=== PATIENT | female | born 1990 | race Caucasian/White ===

== ENCOUNTER 2016-07-19 19:26 | Outpatient (CLI) | payer OTHER ==
[~2016-07-19] VITALS: Ht 165.1 cm; Wt 74.8 kg
[2016-07-19 19:49] VITALS: BP 105/62; PULSE 96; RESP 20; Ht 165.1 cm; Wt 74.8 kg
--- NOTE | 2016-07-19 21:03 | PN ---
Date/Time of Note Date/Time of Note DATE: 07/19/16 TIME: 20:57 OB Subjective Subjective Subjective 26 Year-old G1 with SIUP at 32 3/7 weeks presents with a chief complaint of abdominal cramp every one hour. She has been receiving her care with Dr. Yanes. She states good movement. She denies nausea, vomiting, shortness of breath, chest pain, headache, visual changes, vaginal bleeding or LOF. OB Objective Objective Objective General: Patient appears well, alert and oriented, NAD, appropriate mood and affect ABD: gravid, soft, non-tender. Back: No CVA tenderness (B/L) LE: No clubbing, cyanosis, edema, thigh or calf tenderness bilaterally FHT: 140 bpm , moderate variability with acceleration, no deceleration-category I Contractions: None OB Assessment/Plan Other plan: 26 Year-old G1 with SIUP at 32 3/7 weeks with occasional abdominal cramp, no ucs in exam - FHR: No sign of metabolic acidosis- Category I - Continuous EFM, toco - Contractions: None. - Reactive NST. - Symptoms and sign of labor, preeclampsia, kick count discussed with patient, she voiced understanding. All of her questions answered. - Patient was discharged home in stable condition with the appropriate discharge instructions provided. I would like patient to have close follow-up with her primary OB care physician or outpatient clinic in 1-2 days or return to the ER for worsening symptoms or any other urgent concerns. IGGY BEAVER Jul 19, 2016 21:03
[2016-07-19] MEDS ORDERED: LACTATED RINGER'S 1,000 ML IV ONE (22:30)
--- NOTE | 2016-07-19 23:02 | RADRPT ---
PROCEDURE: ULTRASOUND OBSTETRICAL CLINICAL INDICATION: 26-year-old female in labor for cervical length evaluation. TECHNIQUE: The sonographic images of the pelvis were obtained using a transvaginal approach was sc anned evaluate the cervix. The images were reviewed on a PACS workstation. COMPARISON: No prior studies are available for comparison. FINDINGS: The cervix is closed with a length of 4.5 cm evaluated transvaginally. IMPRESSION: The cervix is closed with a length of 4.5 cm. .Mayur Razo MD, MD Date Time Electronically viewed and signed by .Mayur Razo MD, on 07/19/2016 23:02 .M/
[2016-07-19 23:17] LABS: ADD UMIC NO; URINE BILIRUBIN (Dip) NEGATIVE (NEGATIVE); URINE BLOOD (Dip) NEGATIVE (NEGATIVE); URINE COLOR LT. YELLOW (YELLOW); URINE GLUCOSE (Dip) NEGATIVE (NEGATIVE); URINE KETONES (Dip) NEGATIVE (NEGATIVE); URINE LEUKOCYTE ESTERASE (Dip) NEGATIVE (NEGATIVE); URINE NITRITE (Dip) NEGATIVE (NEGATIVE); URINE TOTAL PROTEIN (Dip) NEGATIVE (NEGATIVE); URINE UROBILINOGEN (Dip) 1.0 E.U./dL (0.1-1.0)
[2016-07-19 23:28] LABS: ADD SCAN DIFF NO
[2016-07-19 23:30] LABS: BASOPHILS % 0.5 % (0.0-2.0); EOSINOPHILS # 0.1 10^3/ul (0.0-0.5); EOSINOPHILS % 0.7 % (0.0-7.0); HEMATOCRIT 32.6 % (37.0-47.0); HEMOGLOBIN 11.2 g/dl (12.0-16.0); LYMPHOCYTES % 23.7 % (15.0-51.0); MEAN CORPUSCULAR HEMOGLOBIN 31.7 pg (29.0-33.0); MEAN CORPUSCULAR HGB CONC 34.4 g/dl (32.0-37.0); MEAN CORPUSCULAR VOLUME 92.4 fl (82.0-101.0); MEAN PLATELET VOLUME 10.3 fl (7.4-10.4); MONOCYTE # 0.9 10^3/ul (0.3-0.9); MONOCYTES % 9.9 % (0.0-11.0); NEUTROPHIL # 5.5 10^3/ul (1.6-7.5); NEUTROPHILS % 63.6 % (39.0-77.0); PLATELET COUNT 200 10^3/UL (140-415); RED BLOOD COUNT 3.53 10^6/ul (4.20-5.40); RED CELL DISTRIBUTION WIDTH 12.3 % (11.5-14.5); WHITE BLOOD COUNT 8.6 10^3/ul (4.8-10.8)
--- NOTE | 2016-07-20 04:49 | TRIAGE ---
OB Triage Datetime Report Generated by CPN: 07/20/2016 04:49 Datetime: 07/19/2016 23:50 Stage of : OB Triage Labor Evaluation Frequency: Irregular Monitor Mode: External Duration (sec)2399: 40-90 Quality: Mild Pattern: Normal: <= 5 Contractions in 10 Minutes Resting Tone [place]: Relaxed Heart Rate FHR Baseline Rate: 130 Monitor Mode: External US FHR Baseline Changes: No Baseline Change Variability: Moderate 6-25 bpm Accelerations: 15X15 Decelerations: None Category: Category I Datetime: 07/19/2016 23:00 Stage of : OB Triage Labor Evaluation Frequency: x5 Monitor Mode: External Duration (sec)2399: 40-70 Quality: Mild Pattern: Normal: <= 5 Contractions in 10 Minutes Resting Tone [place]: Relaxed Heart Rate FHR Baseline Rate: 130 Monitor Mode: External US FHR Baseline Changes: No Baseline Change Variability: Moderate 6-25 bpm Accelerations: 15X15 Decelerations: None Category: Category I Datetime: 07/19/2016 22:40 Pool: Negative Datetime: 07/19/2016 22:25 Stage of : OB Triage Datetime: 07/19/2016 22:06 Vaginal Exam Membrane Status: Intact Datetime: 07/19/2016 22:00 Stage of : OB Triage Labor Evaluation Frequency: x7 Monitor Mode: External Duration (sec)2399: 40-60 Quality: Mild Pattern: Normal: <= 5 Contractions in 10 Minutes Resting Tone [place]: Relaxed Heart Rate FHR Baseline Rate: 130 Monitor Mode: External US FHR Baseline Changes: No Baseline Change Variability: Moderate 6-25 bpm Accelerations: 15X15 Decelerations: None Category: Category I Datetime: 07/19/2016 21:00 Stage of : OB Triage Labor Evaluation Frequency: Irregular Monitor Mode: External Duration (sec)2399: 40-50 Quality: Mild Pattern: Normal: <= 5 Contractions in 10 Minutes Resting Tone [place]: Relaxed Heart Rate FHR Baseline Rate: 130 Monitor Mode: External US FHR Baseline Changes: No Baseline Change Variability: Moderate 6-25 bpm Accelerations: 15X15 Decelerations: None Category: Category I Datetime: 07/19/2016 20:00 Stage of : OB Triage Labor Evaluation Frequency: x2 Monitor Mode: External Duration (sec)2399: 40-50 Quality: Mild Pattern: Normal: <= 5 Contractions in 10 Minutes Resting Tone [place]: Relaxed Heart Rate FHR Baseline Rate: 130 Monitor Mode: External US Variability: Moderate 6-25 bpm Accelerations: 15X15 Decelerations: None Category: Category I Datetime: 07/19/2016 19:47 EGA: 32.4 Datetime: 07/19/2016 19:36 Stage of : OB Triage Assessment Type: Triage Maternal Assessment Level of Consciousness: Fully Conscious DTR's/Clonus: DTRs 2+; No Clonus Headache: Denies Blurred Vision: No Respiratory Effort: Unlabored; Regular Rhythm; Equal Expansion Breath Sounds, Left: Clear and Equal Breath Sounds, Right: Clear and Equal Nausea/Vomiting: Denies RUQ Epigastric Pain: Denies Lower Extremities Edema: None Degree: None Upper Extremities Edema: None Degree: None Facial Edema: None Temperature Route: Oral Fall Risk Assessment History of Falling: (0) No Secondary Diagnosis: (0) No Ambulatory Aid: (0) Bedrest/Nurse Assist IV Therapy: (0) No Gait: (0) Normal/Bedrest/Immobile Mental Status: (0) Oriented to Own Ability Fall Score: 0 Fall Risk Score Definition: No Risk: No action required Pain Assessment Pain Scale: 0 Pain Presence: None/Denies Pain Type: N/A Pain Assessment Comments: Pt denies pain at this time. States cramping occurs once every 1-2hrs, w ith pain up to 10. Datetime: 07/19/2016 19:30 Time of Arrival: 07/19/2016 19:24 Arrived By: Ambulatory Arrived From: Home Chief Complaint: Abdominal cramping Movement: Present Contractions: Irregular Time Contractions Began: 07/18/2016 22:00 Contractions: q1-2hrs Rupture of Membranes: Denies Vaginal Bleeding: None Vaginal Discharge: Denies Recent Sexual Intercouse: Denies Abdominal Trauma: Not Applicable Patient Complaints: Cramping Time Provider Notified: 07/19/2016 20:18 Provider Notified: Destiny Initial Plan: EFM x2
--- NOTE | 2016-07-20 06:36 | PN ---
Date/Time of Note Date/Time of Note DATE: 07/20/16 TIME: 06:31 OB Subjective Subjective Subjective 26 Year-old G1 with SIUP at 32 3/7 weeks presents with a chief complaint of abdominal cramp. Initially there was no ucs, planning to discharge her however just before discharging home multiple ucs were noted. She has been receiving her care with Dr. Yanes. She states good movement. She denies nausea, vomiting, shortness of breath, chest pain, headache, visual changes, vaginal bleeding or LOF. OB Objective Objective Objective General: Patient appears well, alert and oriented, NAD, appropriate mood and affect ABD: gravid, soft, non-tender. Back: No CVA tenderness (B/L) LE: No clubbing, cyanosis, edema, thigh or calf tenderness bilaterally FHT: 140 bpm , moderate variability with acceleration, no deceleration-category I Contractions: Q4-5 min OB Assessment/Plan Other plan: 26 Year-old G1 with SIUP at 32 3/7 weeks presents with a chief complaint of abdominal cramp. Initially there was no ucs, planning to discharge her however just before discharging home multiple ucs were noted. She has been receiving her care with Dr. Yanes. She states good movement. She denies nausea, vomiting, shortness of breath, chest pain, headache, visual changes, vaginal bleeding or LOF. 26 Year-old G1 with SIUP at 32 3/7 weeks with ucs. FFN performed which was neg, U/A: nml, OB us performed: CL: 4.5 - FHR: No sign of metabolic acidosis- Category I - Continuous EFM, toco - Reactive NST. - Symptoms and sign of labor, preeclampsia, kick count discussed with patient, she voiced understanding. All of her questions answered. - Patient was discharged home in stable condition with the appropriate discharge instructions provided. I would like patient to have close follow-up with her primary OB care physician or outpatient clinic in 1-2 days or return to the ER for worsening symptoms or any other urgent concerns. IGGY BEAVER Jul 20, 2016 06:36
== END 2016-07-20 00:28 | disposition home or self-care (01) ==
LOC: L-D 19:26 → OBT 19:26
PROVIDERS: ATTEND Obstetrics & Gynecology
DX: O26.893 Other specified pregnancy related conditions, third trimester (principal); R10.9 Unspecified abdominal pain; Z3A.32 32 weeks gestation of pregnancy
CPT/HCPCS: 36415; 76817; 81003; 82731; 85025; 87086; 96360; 96361; J7120; Z7500; G0463

== ENCOUNTER 2016-08-20 10:13 | Outpatient (CLI) | payer OTHER ==
[~2016-08-20] VITALS: Ht 165.1 cm; Wt 76.4 kg
[2016-08-20 10:28] VITALS: Ht 165.1 cm; Wt 76.4 kg
[2016-08-20 10:29] VITALS: BP 116/67; PULSE 96; RESP 20
[2016-08-20] MEDS ORDERED: LACTATED RINGER'S 1,000 ML IV SCH (11:15)
--- NOTE | 2016-08-20 12:28 | RADRPT ---
PROCEDURE: US OB biophysical profile. Ultrasound cervix CLINICAL INDICATION: decreased movements, labor TECHNIQUE: Multiple sonographic images of the pelvis were obtained. In addition, transvaginal imag es of the cervix were obtained. The images were reviewed on a PACS workstation. COMPARISON: 07/19/2016 FINDINGS: The cervix is closed and measures 3.8 cm in length. There is a single viable intrauterine gestation. Cardiac activity is present with 144 beats per min [place]. There is a vertex presentation. The placenta is posterior. There is no evidence of placental abruption. There is a normal amount of amniotic fluid with an RACHEL = 15.1 cm. Biophysical profile: movement 2/2 tone 2/2. breathing 2/2 RACHEL 2/2 Total 11/23 RPTAT: AA . IMPRESSION: Normal biophysical profile. Cervix is closed and measures 3.8 cm length. . .Lee Estrella MD, MD Date Time Electronically viewed and signed by .Lee Estrella MD, MD on 08/20/2016 12:27 .S/
--- NOTE | 2016-08-20 13:34 | TRIAGE ---
OB Triage Datetime Report Generated by CPN: 08/20/2016 13:33 Datetime: 08/20/2016 13:00 Labor Evaluation Frequency: X3 Monitor Mode: External Duration (sec)2399: 30-120 Quality: Mild Pattern: Normal: <= 5 Contractions in 10 Minutes Resting Tone [place]: Relaxed Heart Rate FHR Baseline Rate: 130 Monitor Mode: External US FHR Baseline Changes: No Baseline Change Variability: Moderate 6-25 bpm Accelerations: 15X15 Decelerations: None Category: Category I Pain Assessment Pain Scale: 2 Pain Presence: Intermittent Pain Type: Cramping Pain Location: Abdomen; Back Pain Goal: 2 Membrane Status: Intact Datetime: 08/20/2016 12:30 Labor Evaluation Frequency: X2 Duration (sec)2399: 40-100 Quality: Mild Pattern: Normal: <= 5 Contractions in 10 Minutes Resting Tone [place]: Relaxed Heart Rate FHR Baseline Rate: 130 Monitor Mode: External US FHR Baseline Changes: No Baseline Change Variability: Moderate 6-25 bpm Accelerations: 15X15 Decelerations: None Category: Category I Pain Assessment Pain Scale: 5 Pain Presence: Intermittent Pain Type: Cramping Pain Location: Abdomen; Back Pain Relief Measures: Comfort Measures Datetime: 08/20/2016 11:51 Labor Evaluation Frequency: 2-12 Monitor Mode: External Duration (sec)2399: 60-80 Quality: Mild Pattern: Normal: <= 5 Contractions in 10 Minutes Resting Tone [place]: Relaxed Heart Rate FHR Baseline Rate: 130 Monitor Mode: External US FHR Baseline Changes: No Baseline Change Variability: Moderate 6-25 bpm Accelerations: 15X15 Decelerations: None Category: Category I Pain Assessment Pain Scale: 5 Pain Presence: Intermittent Pain Type: Cramping Pain Location: Abdomen; Back Pain Goal: 2 Pain Relief Measures: Comfort Measures Datetime: 08/20/2016 11:18 Labor Evaluation Frequency: 3-8 Monitor Mode: External Duration (sec)2399: 40-60 Quality: Mild Pattern: Normal: <= 5 Contractions in 10 Minutes Resting Tone [place]: Relaxed Heart Rate FHR Baseline Rate: 130 Monitor Mode: External US FHR Baseline Changes: No Baseline Change Variability: Moderate 6-25 bpm Accelerations: 15X15 Decelerations: None Category: Category I Pain Assessment Pain Scale: 5 Pain Presence: Intermittent Pain Type: Cramping Pain Location: Abdomen; Back Pain Goal: 2 Pain Relief Measures: Comfort Measures Membrane Status: Intact Datetime: 08/20/2016 11:00 Vaginal Exam Dilatation (cms): 1.0 Effacement (%): 50 Station: -3 Exam By: MAY Vaginal Bleeding: None Cervix, Consistency: Moderate Cervix, Position: Anterior Datetime: 08/20/2016 10:48 Labor Evaluation Frequency: 4-12 Monitor Mode: External Duration (sec)2399: 40-90 Quality: Moderate Pattern: Normal: <= 5 Contractions in 10 Minutes Resting Tone [place]: Relaxed Heart Rate FHR Baseline Rate: 130 Monitor Mode: External US FHR Baseline Changes: No Baseline Change Variability: Moderate 6-25 bpm Accelerations: 15X15 Decelerations: None Category: Category I Pain Assessment Pain Scale: 5 Pain Presence: Intermittent Pain Type: Cramping Pain Location: Abdomen; Back Pain Goal: 2 Pain Relief Measures: Comfort Measures Datetime: 08/20/2016 10:15 Stage of : OB Triage Assessment Type: Triage Maternal Assessment Level of Consciousness: Fully Conscious DTR's/Clonus: DTRs 2+; No Clonus Headache: Denies Blurred Vision: No Respiratory Effort: Unlabored; Regular Rhythm; Equal Expansion Nausea/Vomiting: Denies RUQ Epigastric Pain: Denies Lower Extremities Edema: [place] TOES BILATERALLY Degree: None Upper Extremities Edema: None Degree: None Facial Edema: None Fall Risk Assessment History of Falling: (0) No Secondary Diagnosis: (0) No Ambulatory Aid: (0) Bedrest/Nurse Assist IV Therapy: (0) No Gait: (0) Normal/Bedrest/Immobile Mental Status: (0) Oriented to Own Ability Fall Score: 0 Fall Risk Score Definition: No Risk: No action required Monitor Mode: External Monitor Mode: External US Pain Assessment Pain Scale: 5 Pain Presence: Intermittent Pain Type: Cramping Pain Location: Abdomen; Back Pain Goal: 2 Datetime: 08/20/2016 10:05 Time of Arrival: 08/20/2016 10:05 EGA: 36.0 Arrived By: Ambulatory Arrived From: Home Chief Complaint: CRAMPING Movement: Present Contractions: Irregular Time Contractions Began: 08/20/2016 03:00 Rupture of Membranes: Denies Vaginal Bleeding: None Vaginal Discharge: Present Recent Sexual Intercouse: Denies Abdominal Trauma: Not Applicable Patient Complaints: Cramping Time Provider Notified: 08/20/2016 11:05 Provider Notified: DR. LUZ Initial Plan: EFM Datetime: 07/20/2016 00:10 Stage of : OB Triage Datetime: 07/19/2016 19:47 EGA: 31.3 Datetime: 07/19/2016 19:36 Fall Score: 0 Fall Risk Score Definition: No Risk: No action required Datetime: 07/19/2016 19:30 Initial Plan: EFM x2 FFN, U/S for cervical length, CBC, UA and C_S, IV hydration
== END 2016-08-20 13:10 | disposition home or self-care (01) ==
LOC: OBT 10:13 → L-D 10:14 → OBT 13:10
PROVIDERS: ATTEND Obstetrics & Gynecology
DX: O26.893 Other specified pregnancy related conditions, third trimester (principal); R10.9 Unspecified abdominal pain; O60.03 Preterm labor without delivery, third trimester; Z3A.36 36 weeks gestation of pregnancy
CPT/HCPCS: 36415; 76817; 76818; 96360; 96361; J7120; Z7500; G0463

== ENCOUNTER 2016-08-28 21:54 | Outpatient (CLI) | payer OTHER ==
[~2016-08-28] VITALS: Ht 165.1 cm; Wt 77.7 kg
[2016-08-28 22:46] VITALS: BP 109/58; PULSE 102; RESP 18
--- NOTE | 2016-08-28 23:19 | RADRPT ---
PROCEDURE: ULTRASOUND BIOPHYSICAL PROFILE CLINICAL INDICATION: 26-year-old female with contractions for viability. TECHNIQUE: Multiple sonographic images were obtained in order to perform a biophysical profile The images were reviewed on a PACS workstation. COMPARISON: Ultrasound biophysical profile August 20, 2016. FINDINGS: There is a single viable intrauterine gestation. There is a vertex presentation. Cardiac activity i s present at 125 beats per minute. The placenta is fundal. The results of the biophysical profile a re as follows: breathing movement = 2/2 Gross body movement = 2/2 tone = 2/2 Qualitative amniotic fluid volume = 2/2 Amniotic fluid index equals 15.5 cm. This yields a biophysical profile score of 8/8. IMPRESSION: Biophysical profile score is 8/8. .Mayur Razo MD, MD Date Time Electronically viewed and signed by .Mayur Razo MD, MD on 08/28/2016 23:19 .M/
[2016-08-28 23:41] LABS: URINE BLOOD (Dip) POC Negative (NEGATIVE)
--- NOTE | 2016-08-29 02:18 | TRIAGE ---
OB Triage Datetime Report Generated by CPN: 08/29/2016 02:18 Datetime: 08/29/2016 01:39 Stage of : OB Triage Labor Evaluation Frequency: 3-10 Monitor Mode: External Duration (sec)2399: 30-50 Quality: Mild Pattern: Normal: <= 5 Contractions in 10 Minutes Resting Tone [place]: Relaxed Heart Rate FHR Baseline Rate: 125 Monitor Mode: External US Variability: Moderate 6-25 bpm Accelerations: 15X15 Decelerations: None Category: Category I Vaginal Exam Dilatation (cms): 1.0 Effacement (%): 50 Station: -3 Exam By: Dr Crane Membrane Status: Intact Vaginal Bleeding: None Cervix, Consistency: Soft Cervix, Position: Posterior Presentation 'A': Cephalic Datetime: 08/29/2016 00:30 Monitor Mode: External Quality: Mild Pattern: Normal: <= 5 Contractions in 10 Minutes Resting Tone [place]: Relaxed Heart Rate FHR Baseline Rate: 110 Monitor Mode: External US Variability: Moderate 6-25 bpm Accelerations: 15X15 Decelerations: None Category: Category I Datetime: 08/28/2016 23:23 Stage of : OB Triage Labor Evaluation Frequency: 9-10 Monitor Mode: External Duration (sec)2399: 40-50 Quality: Mild Pattern: Normal: <= 5 Contractions in 10 Minutes Resting Tone [place]: Relaxed Heart Rate FHR Baseline Rate: 120 Monitor Mode: External US FHR Baseline Changes: No Baseline Change Variability: Moderate 6-25 bpm Accelerations: 15X15 Decelerations: None Category: Category I Vaginal Exam Dilatation (cms): 1.0 Effacement (%): 50 Station: -3 Exam By: Camilla Jerez Membrane Status: Intact Amniotic Fluid Amount: None Vaginal Bleeding: None Cervix, Consistency: Soft Cervix, Position: Posterior Presentation 'A': Cephalic Datetime: 08/28/2016 22:31 Stage of : OB Triage Labor Evaluation Frequency: q9 Monitor Mode: External Duration (sec)2399: 60 Quality: Mild Pattern: Normal: <= 5 Contractions in 10 Minutes Resting Tone [place]: Relaxed Heart Rate FHR Baseline Rate: 120 Monitor Mode: External US FHR Baseline Changes: No Baseline Change Variability: Moderate 6-25 bpm Accelerations: 15X15 Decelerations: None Category: Category II Pain Assessment Pain Scale: 8 Pain Presence: Intermittent Pain Type: Cramping; Contraction Pain Location: Abdomen Datetime: 08/28/2016 22:17 Stage of : OB Triage Datetime: 08/28/2016 22:06 Stage of : OB Triage Maternal Assessment Level of Consciousness: Fully Conscious Headache: Denies Blurred Vision: No Respiratory Effort: Unlabored Nausea/Vomiting: Denies RUQ Epigastric Pain: Denies Facial Edema: None Labor Evaluation Frequency: placed Monitor Mode: External Resting Tone [place]: Relaxed Monitor Mode: External US Comments: [id number] Pain Assessment Pain Scale: 8 Pain Presence: Intermittent Pain Type: Contraction Pain Location: Abdomen Datetime: 08/28/2016 22:00 Time of Arrival: 08/28/2016 21:50 EGA: 37.1 Arrived By: Wheelchair Arrived From: Home Chief Complaint: w/ c/o ucs increasing in pain. Denies hx problems this Movement: Present Contractions: Irregular Time Contractions Began: 08/27/2016 23:00 Contractions: Q30 Rupture of Membranes: Denies Vaginal Bleeding: None Vaginal Discharge: Denies Recent Sexual Intercouse: Denies Abdominal Trauma: Not Applicable Patient Complaints: Contractions Time Provider Notified: 08/28/2016 22:17 Provider Notified: Dr Crane Initial Plan: EFM, SVE, BPP Datetime: 08/20/2016 10:15 Fall Risk Assessment Fall Score: 0 Fall Risk Score Definition: No Risk: No action required Datetime: 08/20/2016 10:05 EGA: 36.0 Datetime: 07/19/2016 19:47 EGA: 31.3 Datetime: 07/19/2016 19:36 Fall Risk Assessment Fall Score: 0 Fall Risk Score Definition: No Risk: No action required
--- NOTE | 2016-08-29 02:32 | QN ---
Documentation Comment OB Triage- Laborist Pt is a 26yo who presented at 37+1 with painful UCs starting at 2300. Pt reported UCs were approximately q30 min. Reports normal FM, denies LOF or VB. VS 98.3 109/58 102 18 FHT: Baseline 110s-120s, mod [place], +accels, +mild variable to 105 x1 (when baseline 120s) with no other decels during extended monitoring x3 hours thereafter [place]: q8-10 min UCs SVE: 1/L/high/posterior, unchanged on 2 exams approximately 3hrs apart PROCEDURE: ULTRASOUND BIOPHYSICAL PROFILE CLINICAL INDICATION: 26-year-old female with contractions for viability. TECHNIQUE: Multiple sonographic images were obtained in order to perform a biophysical profile The images were reviewed on a PACS workstation. COMPARISON: Ultrasound biophysical profile August 20, 2016. FINDINGS: There is a single viable intrauterine gestation. There is a vertex presentation. Cardiac activity is present at 125 beats per minute. The placenta is fundal. The results of the biophysical profile are as follows: breathing movement = 2/2 Gross body movement = 2/2 tone = 2/2 Qualitative amniotic fluid volume = 2/2 Amniotic fluid index equals 15.5 cm. This yields a biophysical profile score of 8/8. IMPRESSION: Biophysical profile score is 8/8. Assessment Term contractions w/o labor Reassuring FWB, reactive NST, normal BPP Plan Pt advised to f/up as scheduled next week with primary OB clinic Strict return precautions for labor, ROM and FKC reviewed Questions answered to patient's satisfaction Appropriate for d/c home KRISTY MEI MD August 29, 2016 02:32
== END 2016-08-29 01:50 | disposition home or self-care (01) ==
LOC: L-D 21:54 → OBT 21:54
PROVIDERS: ATTEND Obstetrics & Gynecology
DX: O62.9 Abnormality of forces of labor, unspecified (principal); Z3A.37 37 weeks gestation of pregnancy
CPT/HCPCS: 76818; 81003; G0463

== ENCOUNTER 2016-09-08 16:38 | Outpatient (CLI) | payer OTHER ==
[~2016-09-08] VITALS: Ht 165.1 cm; Wt 77.6 kg
[2016-09-08 16:53] VITALS: Ht 165.1 cm; Wt 77.6 kg
[2016-09-08 16:54] VITALS: BP 113/60; PULSE 102; RESP 18
--- NOTE | 2016-09-08 22:52 | PN ---
Date/Time of Note Date/Time of Note DATE: 09/08/16 TIME: 22:44 OB Subjective Subjective Subjective 26 y.o who had x2 presented triage with c/o uterine contractions . no leaking fluid at 38w5d initial VE 2-3 50% -2 rechecked X2 2hr apart after ambulation no change 2cm long -2 X2 by same person OB Objective Objective Objective EFM shows uc irregularly reactive strip no change on VE in 6hr OB Assessment/Plan Other Assessment: IUP 38w5d in latent phase Other plan: discharge home with routine labor instructions RTH prn JEWEL VASQUEZ MD September 08, 2016 22:52
--- NOTE | 2016-09-08 23:28 | TRIAGE ---
OB Triage Datetime Report Generated by CPN: 09/08/2016 23:28 Datetime: 09/08/2016 22:09 Labor Evaluation Frequency: 3-5.5 Monitor Mode: External Duration (sec)2399: 60-120 Quality: Mild Pattern: Normal: <= 5 Contractions in 10 Minutes Resting Tone [place]: Relaxed Heart Rate FHR Baseline Rate: 115 Monitor Mode: External US FHR Baseline Changes: No Baseline Change Variability: Moderate 6-25 bpm Accelerations: 15X15 Decelerations: None Category: Category I Datetime: 09/08/2016 22:06 Vaginal Exam Dilatation (cms): 2.0 Effacement (%): 0 Station: -2 Exam By: Morris S. RN Cervix, Position: Posterior Datetime: 09/08/2016 21:05 Labor Evaluation Frequency: 3-5 Monitor Mode: External Duration (sec)2399: 50-90 Quality: Mild Pattern: Normal: <= 5 Contractions in 10 Minutes Resting Tone [place]: Relaxed Heart Rate FHR Baseline Rate: 125 Monitor Mode: External US FHR Baseline Changes: No Baseline Change Variability: Moderate 6-25 bpm Accelerations: 15X15 Decelerations: None Category: Category I Comments: Periods of baseline at 115 FHR Datetime: 09/08/2016 20:05 Labor Evaluation Frequency: 3-5 Monitor Mode: External Duration (sec)2399: 60-90 Quality: Mild Pattern: Normal: <= 5 Contractions in 10 Minutes Resting Tone [place]: Relaxed Heart Rate FHR Baseline Rate: 125 Monitor Mode: External US FHR Baseline Changes: No Baseline Change Variability: Moderate 6-25 bpm Accelerations: 15X15 Decelerations: None Category: Category I Datetime: 09/08/2016 19:53 Vaginal Exam Dilatation (cms): 2.0 Effacement (%): 0 Station: -2 Exam By: Morris S. RN Cervix, Position: Posterior Datetime: 09/08/2016 19:15 Contraction Comments: UCs UP TO 1713: Q3-6 Comments: FHR STRIP UP TO 1713: FHR 130 Datetime: 09/08/2016 17:12 Vaginal Exam Dilatation (cms): 2.5 Effacement (%): 50 Station: -2 Exam By: erlin Vaginal Bleeding: None Cervix, Consistency: Moderate Cervix, Position: Midposition Datetime: 09/08/2016 16:52 Assessment Type: Triage Maternal Assessment Level of Consciousness: Fully Conscious DTR's/Clonus: DTRs 2+; No Clonus Headache: Denies Blurred Vision: No Respiratory Effort: Unlabored; Regular Rhythm; Equal Expansion Nausea/Vomiting: Denies RUQ Epigastric Pain: Denies Lower Extremities Edema: SWOLLEN TOES BILATERALLY Degree: None Upper Extremities Edema: None Degree: None Facial Edema: None Fall Risk Assessment History of Falling: (0) No Secondary Diagnosis: (0) No Ambulatory Aid: (0) Bedrest/Nurse Assist IV Therapy: (0) No Gait: (0) Normal/Bedrest/Immobile Mental Status: (0) Oriented to Own Ability Fall Score: 0 Fall Risk Score Definition: No Risk: No action required Datetime: 09/08/2016 16:50 Time of Arrival: 09/08/2016 16:35 EGA: 38.5 Arrived By: Ambulatory Arrived From: Home Chief Complaint: C/O UC'S AND LOWER BACK PAIN Movement: Present Contractions: Irregular Time Contractions Began: 09/08/2016 07:00 Rupture of Membranes: Denies Vaginal Bleeding: None Vaginal Discharge: Denies Recent Sexual Intercouse: Denies Abdominal Trauma: Not Applicable Patient Complaints: Contractions; Cramping; Back Pain Time Provider Notified: 09/08/2016 17:17 Provider Notified: SUKH Initial Plan: EFM, SVE, PO HYDRATION, HAVE PT AMBULATE FOR 2 HOURS THEN RE CHECK SVE. Datetime: 09/08/2016 16:47 Monitor Mode: External Monitor Mode: External US Datetime: 08/28/2016 22:00 EGA: 37.1 Datetime: 08/20/2016 10:15 Fall Score: 0 Fall Risk Score Definition: No Risk: No action required Datetime: 08/20/2016 10:05 EGA: 36.0 Datetime: 07/19/2016 19:47 EGA: 31.3 Datetime: 07/19/2016 19:36 Fall Score: 0 Fall Risk Score Definition: No Risk: No action required
== END 2016-09-08 22:15 | disposition home or self-care (01) ==
LOC: OBT 16:38 → L-D 16:39 → OBT 22:15
PROVIDERS: ATTEND Obstetrics & Gynecology
DX: O62.9 Abnormality of forces of labor, unspecified (principal); Z3A.35 35 weeks gestation of pregnancy
CPT/HCPCS: G0463

== ENCOUNTER 2016-09-10 11:44 | Inpatient (IN) | payer OTHER ==
[~2016-09-10] VITALS: Ht 165.1 cm; Wt 78.0 kg
[2016-09-10 11:39] VITALS: Ht 165.1 cm; Wt 78.0 kg
[2016-09-10 11:43] VITALS: BP 117/66; PULSE 85; RESP 20
--- NOTE | 2016-09-10 12:14 | RADRPT ---
PROCEDURE: US OB biophysical profile. CLINICAL INDICATION: evaluation, contractions TECHNIQUE: Multiple sonographic images of the pelvis were obtained. The images were reviewed on a PACS workstation. COMPARISON: Obstetrical ultrasound from 08/28/2016 FINDINGS: There is a single viable intrauterine gestation. Cardiac activity is present with 128 beats per min [place]. There is a vertex presentation. The placenta is fundal. There is no evidence of placental abruption. There is a low - normal amount of amniotic fluid with an RACHEL = 8.3 cm. Biophysical profile: movement 2/2 tone 2/2. breathing 2/2 RACHEL 2/2 Total 11/23 RPTAT: AA . IMPRESSION: Normal biophysical profile. Low - normal RACHEL of 8.3 cm. Physician Saturnino Date Time Electronically viewed and signed by Physician Saturnino on 09/10/2016 12:14 /
--- NOTE | 2016-09-10 12:23 | RADRPT ---
PROCEDURE: US OB. CLINICAL INDICATION: Size and dates TECHNIQUE: Multiple sonographic images of the pelvis and gravid uterus were obtained. The images were reviewed on a PACS workstation. COMPARISON: 09/10/2016 FINDINGS: There is a single viable intrauterine gestation. Cardiac activity is present with 126 beats per min [place]. There is a vertex presentation. The placenta is fundal. There is no evidence for an abruption or placenta previa. There is a normal amount of amniotic fluid with an RACHEL = 8.3 cm. Measurements were made in order to determine age. The results are as follows: BPD =9.2 cm HC =33.8 cm AC =36.3 cm FL =7.7 cm Estimated gestational age of approximately 39 weeks and 0 days based on ultrasound measurements. Clinical age: 39 weeks and 0 days. The estimated date of delivery is 09/17/16, based on ultrasound measurements. The EFW = 3791 g, 79%, based on LMP age. RPTAT: AA IMPRESSION: Single viable intrauterine gestation of approximately 39 weeks and 0 days based on ultrasound measu rements. .Lee Estrella MD, Date Time Electronically viewed and signed by .Lee Estrella MD, MD on 09/10/2016 12:23 .S/
[2016-09-10] MEDS ORDERED: FERR325C PO (12:35)
[2016-09-10] MEDS ORDERED: PRENAT PO (12:35)
[2016-09-10 13:05] LABS: ADD UMIC YES; URINE BILIRUBIN (Dip) NEGATIVE (NEGATIVE); URINE BLOOD (Dip) TRACE (NEGATIVE); URINE COLOR LT. YELLOW (YELLOW); URINE GLUCOSE (Dip) NEGATIVE (NEGATIVE); URINE KETONES (Dip) NEGATIVE (NEGATIVE); URINE LEUKOCYTE ESTERASE (Dip) NEGATIVE (NEGATIVE); URINE NITRITE (Dip) NEGATIVE (NEGATIVE); URINE TOTAL PROTEIN (Dip) NEGATIVE (NEGATIVE); URINE UROBILINOGEN (Dip) 0.2 E.U./dL (0.1-1.0)
[2016-09-10 13:19] LABS: BACTERIA,URINE MODERATE; MUCUS,URINE FEW; URINE RBCS 0-2 /HPF (0)
[2016-09-10] MEDS ORDERED: OXYTOCIN 30 UNITS/LR 500 ML IV SCH ×2 (14:00)
[2016-09-10] MEDS ORDERED: OXYTOCIN 30 UNITS/LR 500 ML IV PRN (14:00)
[2016-09-10] MEDS ORDERED: MISOPROSTOL 200 MCG TAB PR PRN (14:00)
[2016-09-10] MEDS ORDERED: ACETAMINOPHEN/CODEINE #3 TAB PO PRN (14:00)
[2016-09-10] MEDS ORDERED: BUTORPHANOL 2 MG INJ IV PRN (14:00)
[2016-09-10] MEDS ORDERED: LIDOCAINE 1% (MPF) 30 ML INJ INJ PRN (14:00)
[2016-09-10] MEDS ORDERED: CARBOPROST 250 MCG INJ IM PRN (14:00)
[2016-09-10] MEDS ORDERED: METHYLERGONOVINE 0.2 MG INJ IM PRN (14:00)
[2016-09-10] MEDS ORDERED: IBUPROFEN 600 MG TAB PO PRN (14:00)
[2016-09-10] MEDS ORDERED: AMPICILLIN 2 GM/NS (PMX) 100 ML IV ONE (14:00)
[2016-09-10] MEDS: LACTATED RINGER'S 1,000 ML IV SCH ×3 (14:12→20:35)
[2016-09-10 14:21] LABS: ADD SCAN DIFF NO
[2016-09-10 14:24] LABS: BASOPHILS % 0.4 % (0.0-2.0); EOSINOPHILS % 0.5 % (0.0-7.0); HEMATOCRIT 30.7 % (37.0-47.0); HEMOGLOBIN 10.5 g/dl (12.0-16.0); LYMPHOCYTES # 1.7 10^3/ul (0.8-2.9); LYMPHOCYTES % 22.3 % (15.0-51.0); MEAN CORPUSCULAR HEMOGLOBIN 30.7 pg (29.0-33.0); MEAN CORPUSCULAR HGB CONC 34.2 g/dl (32.0-37.0); MEAN CORPUSCULAR VOLUME 89.8 fl (82.0-101.0); MEAN PLATELET VOLUME 10.4 fl (7.4-10.4); MONOCYTE # 0.7 10^3/ul (0.3-0.9); MONOCYTES % 9.9 % (0.0-11.0); NEUTROPHIL # 4.9 10^3/ul (1.6-7.5); PLATELET COUNT 211 10^3/UL (140-415); RED BLOOD COUNT 3.42 10^6/ul (4.20-5.40); RED CELL DISTRIBUTION WIDTH 12.9 % (11.5-14.5); WHITE BLOOD COUNT 7.4 10^3/ul (4.8-10.8)
[2016-09-10 14:50] LABS: INR 0.89; PT RATIO 0.9
[2016-09-10 14:51] LABS: PARTIAL THROMBOPLASTIN TIME 26.1 Sec (25.0-35.0)
[2016-09-10] MEDS ORDERED: LACTATED RINGER'S 1,000 ML IV PRN (15:00)
[2016-09-10] MEDS ORDERED: FENTAnyl 2MCG/ML-ROPIV 0.2% 100 ML ONE (17:02)
[2016-09-10] MEDS ORDERED: NALOXONE (0.4 MG/ML) INJ IV PRN (17:30)
[2016-09-10] MEDS: AMPICILLIN 1 GM/NS (PMX) 50 ML IV SCH ×2 (17:31→21:56)
[2016-09-11] MEDS: AMPICILLIN 1 GM/NS (PMX) 50 ML IV SCH ×6 (01:58→21:56)
[2016-09-11] MEDS: FENTAnyl 2MCG/ML-ROPIV 0.2% 100 ML BAG EPI SCH ×2 (03:55→14:17)
[2016-09-11] MEDS ORDERED: OXYTOCIN 30 UNITS/LR 500 ML IV SCH (05:00)
[2016-09-11] MEDS: LACTATED RINGER'S 1,000 ML IV SCH ×3 (05:23→23:14)
[2016-09-11] MEDS ORDERED: MINERAL OIL LIGHT 10 ML VIAL TOP PRN (10:30)
[2016-09-12] MEDS ORDERED: OXYTOCIN 30 UNITS/LR 500 ML IV SCH
[2016-09-12] MEDS: FENTAnyl 2MCG/ML-ROPIV 0.2% 100 ML BAG EPI SCH ×2 (00:38→10:17)
[2016-09-12] MEDS: AMPICILLIN 1 GM/NS (PMX) 50 ML IV SCH ×3 (02:05→09:52)
[2016-09-12] MEDS: LACTATED RINGER'S 1,000 ML IV SCH ×2 (07:26→08:55)
[2016-09-12] MEDS ORDERED: LACTATED RINGER'S 1,000 ML IV ONE (08:30)
--- NOTE | 2016-09-12 11:27 | LDN ---
Date/Time of Note Date/Time of Note DATE: 09/12/16 TIME: 11:20 Delivery Summary Normal spontaneous vaginal delivery of a baby boy from KRISTIN position shoulders delivered without any difficulties rest of the baby's body followed placenta spontaneous expulsion inspected complete estimated blood loss 200 cc patient sustained very small first-degree perineal laceration repaired with single 4-0 chromic catgut postdelivery pelvic exam uterus firm vagina intact patient transferred to recovery room in good condition Weeks of Gestation 39 weeks Placenta Delivered: Spontaneously Meconium: none Episiotomy: No Perineal laceration: 1 Laceration repair: Small first-degree perineal laceration repaired with 4-0 chromic catgut Anesthesia type: Epidural Estimated blood loss: 200 Sponge & Needle done & correct: Yes All needle counts correct: Yes Any foreign bodies felt in the: No Problems: Infant Delivery Information Sex Infant Sex: male Apgars 1 Minute: 9 5 Minute: 9 Suctioning Nose & mouth suctioned at [place]: Yes Delee suction performed: No Umbilical Cord Umbilical cord with: 3 Vessels Cord presentations: nuchal cord Cord Blood was obtained: Yes EMMA LUZ MD September 12, 2016 11:27
[2016-09-12] MEDS: OXYTOCIN 30 UNITS/LR 500 ML IV SCH ×2 (12:50→16:20)
[2016-09-12 13:00] VITALS: BP 111/60; PULSE 75; RESP 18
[2016-09-12] MEDS ORDERED: BENZOCAINE 20% 56 ML SPRAY TOP PRN (13:00)
[2016-09-12] MEDS ORDERED: DIBUCAINE 1% 30 GM OINT PR PRN (13:00)
[2016-09-12] MEDS ORDERED: WITCH HAZEL/GLYCERIN PAD PR PRN (13:00)
[2016-09-12] MEDS ORDERED: ACETAMINOPHEN/CODEINE #3 TAB PO PRN ×2 (13:00)
[2016-09-12] MEDS ORDERED: OXYCODONE/ASPIRIN (4.88/325) TAB PO PRN (13:00)
[2016-09-12] MEDS ORDERED: LANOLIN 7 GM TUBE TOP PRN (13:00)
[2016-09-12] MEDS ORDERED: ACETAMINOPHEN 325 MG TAB PO PRN (13:00)
[2016-09-12] MEDS ORDERED: ONDANSETRON 4 MG INJ IV PRN (13:00)
[2016-09-12] MEDS: OXYCODONE/ASPIRIN (4.88/325) TAB PO PRN ×3 (13:56→23:41)
[2016-09-12 16:00] VITALS: BP 107/60; PULSE 75; RESP 17
--- NOTE | 2016-09-12 16:27 | HP ---
Date/Time of Note Date/Time of Note DATE: 09/12/16 TIME: 16:21 OB - History Hx of Present Free Text/Dictation 26 years old female 3 para 2 EDC September 17, 2016 admitted to [facility] in labor pelvic examination on admission cervical dilatation 3 cm 60% effacement vertex at -1 -2 station category 1 heart tracing contraction every 3-5 minutes transferred from triage to L&D for labor and delivery This patient has been under the care of the [facility] and her course was not complicated with gestational diabetes -induced hypertension or any other serious surgical or medical condition Allergies clindamycin Social habit denies smoking or drinking Chief Complaint: Labor contractions Estimated Due Date: Sep 17, 2016 : 3 Para: 2 Care: Good Care Ultrasounds: Normal mid trimester US Obstetrical Complications: None Medical Complications: None Past Family/Social History * Past Medical, Surgical, Family and Obstetric Histories reviewed from chart. Rubella: immune RPR/VDRL: Negative GBS Status: Negative HBsAG: Negative OB Admission Exam Vital Signs Vital Signs Vital Signs Date Time Temp Pulse Resp B/P Pulse Ox O2 Delivery O2 Flow Rate FiO2 09/12/16 13:00 97.9 75 18 111/60 Room Air Physical Exam HEENT: WNL Lungs: Clear, Equal Abdomen: WNL Extremities: Normal Reflexes: Normal Cervical Dilatation: 3cm Effacement: Other (60%) Membranes: Intact Heart Rate: 130's Accelerations: Accelerations Present Decelerations: No Decelerations Varibility: Moderate Contractions on Admission: >10 Minutes Apart Intensity: Mild Last 72 hours Lab Results CBC & BMP 09/10/16 14:00 EMMA LUZ MD September 12, 2016 16:27
[2016-09-12] MEDS: IBUPROFEN 600 MG TAB PO SCH ×2 (18:17→23:41)
[2016-09-12 20:00] VITALS: BP 115/68; PULSE 69; RESP 17
[2016-09-12] MEDS: SENNA/DOCUSATE NA (8.6MG/50MG) TAB PO SCH (20:42)
[2016-09-12 23:30] VITALS: BP 117/70; PULSE 70; RESP 18
[2016-09-13] MEDS: OXYCODONE/ASPIRIN (4.88/325) TAB PO PRN (02:47)
[2016-09-13 03:30] VITALS: BP 102/57; PULSE 74; RESP 20
[2016-09-13] MEDS ORDERED: DIPHENHYDRAMINE 50 MG CAP PO PRN (03:30)
[2016-09-13] MEDS: IBUPROFEN 600 MG TAB PO SCH ×3 (05:38→17:34)
[2016-09-13 07:19] LABS: ADD SCAN DIFF NO
[2016-09-13 07:28] LABS: BASOPHILS % 0.2 % (0.0-2.0); EOSINOPHILS # 0.1 10^3/ul (0.0-0.5); HEMATOCRIT 33.3 % (37.0-47.0); HEMOGLOBIN 10.9 g/dl (12.0-16.0); LYMPHOCYTES # 1.9 10^3/ul (0.8-2.9); LYMPHOCYTES % 21.2 % (15.0-51.0); MEAN CORPUSCULAR HEMOGLOBIN 29.5 pg (29.0-33.0); MEAN CORPUSCULAR HGB CONC 32.7 g/dl (32.0-37.0); MEAN PLATELET VOLUME 10.5 fl (7.4-10.4); MONOCYTE # 0.9 10^3/ul (0.3-0.9); MONOCYTES % 10.7 % (0.0-11.0); NEUTROPHIL # 5.8 10^3/ul (1.6-7.5); NEUTROPHILS % 66.1 % (39.0-77.0); PLATELET COUNT 206 10^3/UL (140-415); WHITE BLOOD COUNT 8.7 10^3/ul (4.8-10.8)
[2016-09-13 08:00] VITALS: BP 97/53; PULSE 76; RESP 17
[2016-09-13] MEDS: SENNA/DOCUSATE NA (8.6MG/50MG) TAB PO SCH ×2 (09:20→22:01)
--- NOTE | 2016-09-13 11:43 | PN ---
Date/Time of Note Date/Time of Note DATE: 09/13/16 TIME: 11:42 OB Subjective Subjective Subjective day 1 Afebrile vital signs stable abdomen uterus lochia moderate extremity ambulation encouraged Laboratory Tests Test 09/13/16 06:40 White Blood Count 8.710^3/ul Red Blood Count 3.7010^6/ul Hemoglobin 10.9g/dl Hematocrit 33.3% Mean Corpuscular Volume 90.0fl Mean Corpuscular Hemoglobin 29.5pg Mean Corpuscular Hemoglobin Concent 32.7g/dl Red Cell Distribution Width 13.0% Platelet Count 63616^3/UL Mean Platelet Volume 10.5fl Neutrophils % 66.1% Lymphocytes % 21.2% Monocytes % 10.7% Eosinophils % 1.0% Basophils % 0.2% Nucleated Red Blood Cells % 0.0/100WBC Neutrophils # 5.810^3/ul Lymphocytes # 1.910^3/ul Monocytes # 0.910^3/ul Eosinophils # 0.110^3/ul Basophils # 0.010^3/ul Nucleated Red Blood Cells # 0.010^3/ul Current Medications Medications (Trade) Dose Ordered Sig/Claudia Route PRN Reason Start Time Stop Time Status Last Admin Dose Admin Lactated Ringer's 1,000 ml @ 125 mls/hr Q8H IV 09/10/16 13:40 09/12/16 12:52 DC 09/12/16 08:55 Ampicillin 100 ml @ 100 mls/hr ONCE ONCE IV 09/10/16 14:00 09/10/16 14:59 DC 09/10/16 14:12 Ampicillin (Ampicillin 1 Gm/ NS (Pmx)) 50 ml @ 100 mls/hr Q4H IV 09/10/16 18:00 09/12/16 12:52 DC 09/12/16 09:52 Butorphanol Tartrate (Stadol) 2 mg Q2H PRN IV PAIN 09/10/16 14:00 09/12/16 12:52 DC Lidocaine 30 ml 30 ml ONCE PRN INJ EPISIOTOMY/TEARING 09/10/16 14:00 09/12/16 12:53 DC Oxytocin/Lactated Ringer's 500 ml @ 125 mls/hr ONCE -MAY REPEAT X1 IV 09/10/16 14:00 09/12/16 12:53 DC 09/12/16 12:10 Oxytocin/Lactated Ringer's 500 ml @ 125 mls/hr ONCE IV 09/10/16 14:00 09/12/16 12:53 DC Ibuprofen (Motrin) 600 mg ONCE PRN PO Mild Pain (Pain Score 1-3) 09/10/16 14:00 09/12/16 12:53 DC Acetaminophen/ Codeine Phosphate 2 tab 2 tab ONCE PRN PO Moderate to Severe Pain (4-10) 09/10/16 14:00 09/12/16 12:53 DC Lactated Ringer's 1,000 ml @ 2,000 mls/hr Q30M PRN IV PRE-EPIDURAL BOLUS 09/10/16 15:00 09/12/16 08:27 DC Oxytocin/Lactated Ringer's 500 ml @ 0 mls/hr ONCE PRN IV For Hemorrhage Management 09/10/16 14:00 09/12/16 12:53 DC Methylergonovine Maleate (Methergine) 0.2 mg ONCE PRN IM VAGINAL BLEEDING 09/10/16 14:00 09/12/16 12:53 DC Carboprost Tromethamine (Hemabate) 250 mcg ONCE PRN IM VAGINAL BLEEDING 09/10/16 14:00 09/12/16 12:53 DC Misoprostol 1000 mcg 1,000 mcg ONCE PRN ND VAGINAL BLEEDING 09/10/16 14:00 09/12/16 12:53 DC Fentanyl/ Ropivacaine 100 ml @ ud STK-MED ONCE .ROUTE 09/10/16 17:02 09/10/16 17:03 DC Naloxone HCl (Narcan) 0.2 mg Q2M PRN IV FOR RESP RATE 8 OR LESS 09/10/16 17:30 09/12/16 12:53 DC Fentanyl/ Ropivacaine 100 ml 100 ml EPIDURAL (PCEA) EPI 09/10/16 17:30 09/12/16 12:53 DC 09/12/16 10:17 Oxytocin/Lactated Ringer's 500 ml @ 0 mls/hr Q0M IV 09/11/16 05:00 09/11/16 22:10 DC 09/11/16 05:07 Mineral Oil 30 ml 30 ml ONCE PRN TOP FOR DELIVERY 09/11/16 10:30 09/11/16 23:33 DC Oxytocin/Lactated Ringer's 500 ml @ 0 mls/hr Q0M IV 09/12/16 00:00 09/12/16 12:53 DC 09/12/16 02:00 Lactated Ringer's 1,000 ml @ 1,000 mls/hr Q1H ONCE IV 09/12/16 08:30 09/12/16 09:29 DC 09/12/16 08:43 Oxytocin/Lactated Ringer's 500 ml @ 125 mls/hr Q4H IV 09/12/16 12:50 09/12/16 20:49 DC 09/12/16 16:20 Ibuprofen (Motrin) 600 mg Q6 PO 09/12/16 18:00 09/13/16 11:36 Acetaminophen (Tylenol Tab) 650 mg Q4H PRN PO PAIN LEVEL 1-5 09/12/16 13:00 Acetaminophen/ Codeine Phosphate (Tylenol No.3) 1 tab Q4H PRN PO PAIN LEVEL 1-5 09/12/16 13:00 Acetaminophen/ Codeine Phosphate (Tylenol No.3) 2 tab Q4H PRN PO PAIN LEVEL 6-10 09/12/16 13:00 Oxycodone/Aspirin (Percodan) 1 tab Q3H PRN PO PAIN LEVEL 1-5 09/12/16 13:00 09/13/16 07:24 DC Oxycodone/Aspirin (Percodan) 2 tab Q3H PRN PO PAIN LEVEL 6-10 09/12/16 13:00 09/13/16 07:24 DC 09/13/16 02:47 Ondansetron HCl (Zofran Inj) 4 mg Q6H PRN IV NAUSEA AND/OR VOMITING 09/12/16 13:00 Senna/Docusate Sodium (Senokot-S) 1 tab BID PO 09/12/16 21:00 09/13/16 09:20 Witch Yessenia/ Glycerin (Tucks Pads) 1 pad BEDSIDE MEDICATION PRN ND HEMORRHOID/EPISIOTMY PAIN 09/12/16 13:00 09/12/16 16:19 Benzocaine (Dermoplast [place]) 1 spray BEDSIDE MEDICATION PRN TOP HEMORRHOID/EPISIOTMY PAIN 09/12/16 13:00 09/12/16 16:19 Dibucaine (Nupercainal) 1 applic BEDSIDE MEDICATION PRN ND HEMORRHOID/EPISIOTMY PAIN 09/12/16 13:00 Lanolin (Weg-C-Gvloqf) 1 applic BEDSIDE MEDICATION PRN TOP BEDSIDE FOR TRANG TO NIPPLES 09/12/16 13:00 09/12/16 16:19 Measles/Mumps/ Rubella Vaccine Live (Mmr Ii Vaccine) 0.5 ml ONCE ONCE SC* 09/14/16 09:00 09/14/16 09:01 Diphenhydramine HCl (Benadryl) 50 mg Q6H PRN PO ITCHING 09/13/16 03:30 09/13/16 03:40 EMMA LUZ MD September 13, 2016 11:43
[2016-09-13 15:45] VITALS: BP 109/55; PULSE 73; RESP 18
[2016-09-13 21:00] VITALS: BP 117/76; PULSE 71; RESP 18
[2016-09-14] MEDS: IBUPROFEN 600 MG TAB PO SCH ×3 (00:14→12:22)
[2016-09-14 04:00] VITALS: BP 113/59; PULSE 64; RESP 18
[2016-09-14 05:06] VITALS: BP 113/59; PULSE 64; RESP 20
[2016-09-14 07:30] VITALS: BP 112/60; PULSE 74; RESP 18
[2016-09-14] MEDS: SENNA/DOCUSATE NA (8.6MG/50MG) TAB PO SCH (08:46)
[2016-09-14] MEDS ORDERED: MEASLES,MUMPS,RUBELLA VACCINE INJ SC* ONE (09:00)
--- NOTE | 2016-09-14 09:42 | PD.PPDC ---
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
--- NOTE | 2016-09-14 09:46 | DS ---
Date/Time of Note Date/Time of Note DATE: 09/14/16 TIME: 09:43 Discharge Summary Admission/Discharge Info Admit Date/Time September 10, 2016 at 13:45 Discharge Date/Time August at 9:40 AM Final Diagnosis Post normal vaginal delivery Procedures Normal vaginal delivery Hx of Present Illness Term admitted to the hospital for delivery Hospital Course Uneventful satisfactory Home Meds Reported Medications Ferrous Sulfate (Iron) 325 Mg Capsule.er, 325 MG PO, CAP 09/10/16 Multivit/Min/Fol Ac/Iron/Pren* ( S*) 1 Tab Tab, 1 TAB PO DAILY, TAB 09/10/16 Follow-up Plan Patient received detailed instruction recommended to make appointment with the clinic for check in 2 weeks Primary Care Provider [facility] Time spent on discharge: < 30 minutes EMMA LUZ MD September 14, 2016 09:46
== END 2016-09-14 15:31 | disposition home or self-care (01) | DRG 775 ==
LOC: OBT 11:44 → L-D 11:44 → OBT 13:42 → L-D 13:45 → PP1 09-12 12:57
PROVIDERS: ADMIT Obstetrics & Gynecology; ATTEND Obstetrics & Gynecology
PROC: 10E0XZZ Delivery of Products of Conception, External Approach (ICD-10-PCS; principal; 2016-09-12)
PROC: 0HQ9XZZ Repair Perineum Skin, External Approach (ICD-10-PCS; 2016-09-12)
DX: O70.0 First degree perineal laceration during delivery (principal); O69.1XX0 Labor and delivery complicated by cord around neck, with compression, not applicable or unspecified; Z3A.39 39 weeks gestation of pregnancy; Z37.0 Single live birth
CPT/HCPCS: 62319; 76815; 76818; 81001; 85025; 85610; 85730; 86592; 86900; 86901; 87340; A4310; G0463; J0290; J2590; J3010; J7120